=== PATIENT | female | born 1960 | race Caucasian/White ===

== ENCOUNTER 2020-11-22 05:32 | Day surgery (SDC) | payer OTHER ==
[~2020-11-22] VITALS: Ht 165 cm; Wt 69.0 kg
[~2020-11-22 05:32] MED LIST: BENADRYL25 MG PO; CLONAZEPAM 1MG T1 MG PO; FLEXERIL10 MG PO; HCTZ25 MG PO; LISINOPRIL5 MG PO; MEDROL 4MG DOSEP4 MG PO; MELOXICAM15 MG PO; METOPROLOL SUC100 MG PO; PRAVASTATIN SOD80 MG PO; PRIMATENE ASTH1 EACH PO; SERTRALINE HCL100 MG PO; TRAMADOL HCL50 MG PO
--- NOTE | 2020-11-22 11:48 | NUR ---
PT. HAD A LEFT DIRECT ANTERIOR HIP REPLACEMENT THIS DATE. PT. WILL D/C HOME. SHE HAS A ROLLING WALKER AND WANTS FOR PT. SHE REQUESTS A 05/10. INFORMATION SENT TO [facility].
[2020-11-23 07:06] LABS: BASOPHIL 0.3 % (0-2); EOSINOPHIL 1.5 % (0-5); HCT 26.9 % (37.0-47.0); LYMPHOCYTE 26.7 % (15-48); MCH 30.9 pg (25.0-31.0); MCHC 33.5 g/dL (32.0-36.0); MCV 92.4 fL (78.0-100.0); MPV 9.9 fL (6.0-9.5); NEUTROPHIL 63.2 % (41-80); NRBC 0; PLT 146 K/uL (150-400); RBC 2.91 M/uL (4.20-5.40); RDW 13.5 % (11.5-14.0); WBC 9.7 K/uL (4.0-10.5)
[2020-11-23 07:39] LABS: CREATININE 0.83 mg/dL (0.51-0.95); POTASSIUM 3.4 mmol/L (3.5-5.1)
[2020-11-23] MEDS ORDERED: FEOSOL325 MG PO (08:50)
[2020-11-23] MEDS ORDERED: ELIQUIS2.5 MG PO (08:50)
[2020-11-23] MEDS ORDERED: OXYCODONE-ACET1 EAC1 PO (08:50)
--- NOTE | 2020-11-23 10:53 | NUR ---
PT. WILL D/C HOME WITH BOYFRIEND, SHRADDHA RENDON. SHE HAS A ROLLING WALKER. SHE STATED THAT HER DAUGHTER IN LAW WILL BE STAYING WITH HER TO HELP HER. SHE REQUESTED [facility] AND [facility] 05/10. [facility] WILL PROVIDE PT ONLY AND [facility] 05/10. PT. SIGNED A CHOICE FORM.
--- NOTE | 2020-11-23 14:39 | NUR ---
11/23/20 2007 PT HAD MADE COMMENTS REGAURDING CONCERNS WITH HOME LIFE AND DOMESTIC ISSUES. DISCUSSED WITH [employer] OFFBEARER/CARE CORDINATOR SMOOTH. SMOOTH SPOKE WITH PT NO FURTHER ASSESSMENT OR INFO NEEDED.
== END 2020-11-23 09:03 | disposition home or self-care (01) ==
LOC: FAS 05:32
PROVIDERS: Legal Medicine
DX: M16.12 Unilateral primary osteoarthritis, left hip (principal); M19.011 Primary osteoarthritis, right shoulder; M17.12 Unilateral primary osteoarthritis, left knee; M54.16 Radiculopathy, lumbar region; I10 Essential (primary) hypertension; E78.5 Hyperlipidemia, unspecified; F32.9 Major depressive disorder, single episode, unspecified; F41.9 Anxiety disorder, unspecified; D64.9 Anemia, unspecified; J45.909 Unspecified asthma, uncomplicated; R56.9 Unspecified convulsions; Z88.8 Allergy status to other drugs, medicaments and biological substances; Z79.1 Long term (current) use of non-steroidal anti-inflammatories (NSAID); Z79.899 Other long term (current) drug therapy; Z79.891 Long term (current) use of opiate analgesic
CPT/HCPCS: 36415; 73501; 76000; 80048; 85025; 86850; 86900; 86901; 94010; 97110; 97162; 97165; 97530-GP; 97535; C1776; J0171; J0697; J1100; J1170; J1885; J2250; J2270; J2370; J2405; J2704; J2795; J3010; J7120